=== PATIENT | male | born 1955 | race Caucasian/White ===

== ENCOUNTER 2017-07-16 06:16 | Day surgery (SDC) | payer OTHER ==
[2017-07-16] MEDS ORDERED: NS 1,000 ML IV (07:00)
[2017-07-16] MEDS ORDERED: LIDOCAINE 2% INJ 100 MG/5 ML SDV (FOR ANES.) As Ordered (07:12)
[2017-07-16] MEDS ORDERED: PROPOFOL 200 MG/20 ML VIAL As Ordered (07:12)
[2017-07-16] MEDS ORDERED: fentaNYL 100 MCG/2 ML INJECTION (J3010) As Ordered (07:13)
[2017-07-16] MEDS ORDERED: ATROPINE SULF 0.4 MG/ML 1ML VIAL (J0461) As Ordered (08:25)
== END 2017-07-16 09:15 | disposition home or self-care (01) ==
LOC: M OPP 09:15
DX: R13.10 Dysphagia, unspecified (principal); K31.89 Other diseases of stomach and duodenum; K29.70 Gastritis, unspecified, without bleeding; K22.8 Other specified diseases of esophagus; K44.9 Diaphragmatic hernia without obstruction or gangrene; K21.9 Gastro-esophageal reflux disease without esophagitis; R12 Heartburn; K22.70 Barrett's esophagus without dysplasia; E78.5 Hyperlipidemia, unspecified; M19.90 Unspecified osteoarthritis, unspecified site; Z79.899 Other long term (current) drug therapy
CPT/HCPCS: 43249

== ENCOUNTER → 2025-01-29 | Outpatient (REF) | payer MEDICARE, OTHER ==
[~2025-01-29] MED LIST: IBUP80TA; OMEP1CAP73; SIMV10TA21
== END ==
LOC: M SMT 12:36
PROVIDERS: ATTEND Physician Assistant
DX: N20.1 Calculus of ureter (principal)